=== PATIENT | female | born 1980 | race African-American/Black ===

== ENCOUNTER 2020-06-24 05:03 | Inpatient (IN) ==
[2020-06-24] MEDS ORDERED: CITRIC ACID/SODIUM CITRATE 30 ML UDCUP PO ONE (05:16)
[2020-06-24] MEDS ORDERED: ceFAZolin 2,000 MG in PREMIX 1 EACH IV ONE (05:16)
[2020-06-24] MEDS: LACTATED RINGERS 1,000 ML IV SCH (05:45)
[2020-06-24 05:50] LABS: Basophils # 0.1 10*3/uL (0.0-0.2); Basophils % 0.7 % (0.0-0.8); Eosinophils # 0.1 10*3/uL (0.0-0.87); Eosinophils % 1.7 % (0.00-10.9); Hematocrit 35.6 VOL% (35.7-47.0); Hemoglobin 11.8 GM/DL (12.0-16.0); Immature Granulocytes % 0.7 %; Immature Granulocytes Absolute 0.05 #; Lymphocytes # 2.5 10*3/uL (1.4-4.0); Lymphocytes % 33.2 % (21.3-54.2); Mean Corpuscular HGB Conc 33.1 GM/DL (32-36); Mean Corpuscular Volume 79.3 FL (87-102); Mean Platelet Volume 11.1 FL (9.6-12.0); Monocytes % 8.5 % (1.7-12.7); Neutrophils % 55.2 % (38.7-73.9); Platelet Count 214 T/CUMM (130-400); Red Blood Count 4.49 MC/CUMM (3.8-5.5); Red Cell Distribution Width 14.5 % (9.3-17.3); White Blood Count 7.6 T/CUMM (4-12)
[2020-06-24 06:11] LABS: Albumin 2.4 G/DL (3.4-5.0); Bilirubin,Total 0.6 MG/DL (0.2-1.0); Calcium 8.9 MG/DL (8.5-10.1); Osmolality,Calculated 275.4 MOS/KG (273-304); Total Protein 6.5 G/DL (6.4-8.3)
[2020-06-24] MEDS ORDERED: PHENYLEPHRINE 10 MG/1 ML VIAL IV ONE ×2 (06:36→08:04)
[2020-06-24] MEDS ORDERED: FAMOTIDINE 20 MG/2 ML VIAL IV ONE (07:15)
[2020-06-24] MEDS ORDERED: TRANEXAMIC ACID 1,000 MG/10 ML VIAL ONE (07:34)
[2020-06-24] MEDS ORDERED: miSOPROStoL 200 MCG TABLET ONE (07:34)
[2020-06-24] MEDS ORDERED: METHYLERGONOVINE 0.2 MG/1 ML AMP ONE (07:35)
[2020-06-24] MEDS ORDERED: OXYTOCIN/LR 20 UNIT/1,000 ML BAG IV ONE ×2 (07:35→09:08)
[2020-06-24] MEDS ORDERED: CARBOPROST TROMETHAMINE 250 MCG/ML AMP IM ONE (07:35)
[2020-06-24] MEDS ORDERED: BUPIVACAINE MPF 0.5% /EPI 30 ML VIAL ONE ×3 (08:00→08:04)
[2020-06-24] MEDS ORDERED: DEXAMETHASONE 4 MG/1 ML VIAL ONE (08:00)
[2020-06-24] MEDS ORDERED: MORPHINE 10 MG/10 ML VIAL ONE (08:00)
[2020-06-24] MEDS ORDERED: BUPIVACAINE SPINAL 0.75% 2 ML AMP SPINAL ONE (08:00)
[2020-06-24] MEDS ORDERED: BUPIVACAINE 0.25% 50 ML VIAL ONE (08:06)
[2020-06-24] MEDS ORDERED: RHO(D) IMMUNE GLOBULIN 300 MCG SYRINGE IM ONE (09:08)
[2020-06-24] MEDS ORDERED: SIMETHICONE CHEW 80 MG TABLET PO PRN (09:08)
[2020-06-24] MEDS ORDERED: MAGNESIUM HYDROXIDE SUSP 30 ML UDCUP PO PRN (09:08)
[2020-06-24] MEDS ORDERED: ONDANSETRON 4 MG/2 ML VIAL IV PRN (09:08)
[2020-06-24 09:14] LABS: Cord Venous Blood HCO3 23.8 MMOL/L; Cord Venous Blood PCO2 43.9 MMHG; Cord Venous Blood PO2 26.3
[2020-06-24 09:16] LABS: Bacteria,Urine Occasional /HPF (Few); Bilirubin,Urine Negative (Negative); Blood, Urine Negative (Negative); Glucose,Urine (UA) Negative (Negative); Ketones,Urine 5 mg/dL (Negative); Mucus,Urine Moderate /LPF (Occasional); Nitrite,Urine Negative (Negative); Protein,Urine 100 MG/DL; RBC,Urine 1 /HPF (0-4); Squamous Epithelial Cell,Urine Occasional /HPF (0-10); Urine Appearance CLEAR (Clear); Urine Color Yellow (Yellow); Urine Specific Gravity 1.027 (1.001-1.035); Urine Urobilinogen < 2.0 EU/DL (0.2-1.0); WBC,Urine 1 /HPF (0-6)
[2020-06-24] MEDS ORDERED: LACTATED RINGERS 1,000 ML IV SCH (09:30)
[2020-06-24 11:43] LABS: PT Patient Result 10.3 SECS (9.8-11.9); Partial Thromboplastin Time 32.1 SECS (23.9-33.8)
[2020-06-24 11:51] LABS: Albumin 2.3 G/DL (3.4-5.0); Bilirubin,Direct 0.13 MG/DL (0.0-0.20); Bilirubin,Total 0.4 MG/DL (0.2-1.0); Calcium 8.8 MG/DL (8.5-10.1); Osmolality,Calculated 277.3 MOS/KG (273-304); Total Protein 6.2 G/DL (6.4-8.3); Uric Acid 5.3 MG/DL (2.6-6.0)
[2020-06-24] MEDS: LABETALOL 100 MG TABLET PO SCH ×2 (12:06→21:02)
[2020-06-24] MEDS ORDERED: MEPERIDINE 50 MG/1 ML VIAL IM ONE (14:32)
[2020-06-24] MEDS ORDERED: PROMETHAZINE 25 MG/1 ML VIAL IM PRN (14:33)
[2020-06-24 16:28] VITALS: BP 155/106
[2020-06-24 16:58] LABS: Basophils # 0.1 10*3/uL (0.0-0.2); Basophils % 0.6 % (0.0-0.8); Eosinophils % 0.4 % (0.00-10.9); Immature Granulocytes % 0.7 %; Immature Granulocytes Absolute 0.07 #; Lymphocytes # 2.2 10*3/uL (1.4-4.0); Lymphocytes % 20.6 % (21.3-54.2); Mean Corpuscular HGB Conc 32.4 GM/DL (32-36); Mean Corpuscular Volume 80.6 FL (87-102); Mean Platelet Volume 11.1 FL (9.6-12.0); Monocytes % 7.7 % (1.7-12.7); Platelet Count 191 T/CUMM (130-400); Red Blood Count 4.22 MC/CUMM (3.8-5.5); Red Cell Distribution Width 14.9 % (9.3-17.3); White Blood Count 10.7 T/CUMM (4-12)
[2020-06-24] MEDS ORDERED: MAGNESIUM SULF RIDER 4 GM in PREMIX 1 EACH IV ONE (17:07)
[2020-06-24] MEDS ORDERED: MAGNESIUM SULF DRIP 40 GM/1,000 ML ML IV SCH (17:30)
[2020-06-24] MEDS: ceFAZolin 1,000 MG in SYRINGE 1 EACH IV SCH (17:51)
[2020-06-24] MEDS: IBUPROFEN 800 MG TABLET PO PRN (19:35)
[2020-06-24] MEDS: DOCUSATE SODIUM 100 MG CAPSULE PO SCH (21:02)
[2020-06-25] MEDS: ceFAZolin 1,000 MG in SYRINGE 1 EACH IV SCH (00:23)
[2020-06-25 06:07] LABS: Basophils # 0.1 10*3/uL (0.0-0.2); Basophils % 0.4 % (0.0-0.8); Eosinophils # 0.3 10*3/uL (0.0-0.87); Eosinophils % 2.4 % (0.00-10.9); Immature Granulocytes % 0.5 %; Immature Granulocytes Absolute 0.06 #; Lymphocytes # 1.9 10*3/uL (1.4-4.0); Lymphocytes % 17.1 % (21.3-54.2); Mean Corpuscular HGB Conc 33.3 GM/DL (32-36); Mean Corpuscular Volume 78.4 FL (87-102); Mean Platelet Volume 10.9 FL (9.6-12.0); Monocytes % 7.8 % (1.7-12.7); Neutrophils % 71.8 % (38.7-73.9); Platelet Count 200 T/CUMM (130-400); Red Blood Count 4.21 MC/CUMM (3.8-5.5); Red Cell Distribution Width 14.4 % (9.3-17.3); White Blood Count 11.3 T/CUMM (4-12)
[2020-06-25] MEDS: ACETAMINOPHEN 325 MG TABLET PO PRN ×2 (06:12→14:12)
[2020-06-25] MEDS: LACTATED RINGERS 1,000 ML IV SCH (06:47)
[2020-06-25] MEDS: LABETALOL 100 MG TABLET PO SCH (08:55)
[2020-06-25] MEDS: DOCUSATE SODIUM 100 MG CAPSULE PO SCH ×2 (08:56→21:04)
[2020-06-25] MEDS ORDERED: MULTIVITAMIN (PRENATAL) TABLET PO SCH (09:00)
[2020-06-25] MEDS ORDERED: LABETALOL 100 MG TABLET PO ONE ×2 (15:56→16:00)
[2020-06-25] MEDS: IBUPROFEN 800 MG TABLET PO PRN (20:02)
[2020-06-25] MEDS ORDERED: LABETALOL 200 MG TABLET PO SCH (21:00)
[2020-06-25] MEDS: LABETALOL 200 MG TABLET PO SCH (21:04)
[2020-06-26] MEDS ORDERED: MULTIVITAMIN (PRENATAL) TABLET PO SCH (09:00)
[2020-06-26] MEDS: LABETALOL 200 MG TABLET PO SCH (10:09)
[2020-06-26] MEDS: DOCUSATE SODIUM 100 MG CAPSULE PO SCH (12:17)
== END 2020-06-26 13:48 | disposition home or self-care (01) | DRG 540 ==
LOC: N.LD 05:03 → N.OB 13:28 → N.LD 16:49
PROVIDERS: ADMIT Obstetrics & Gynecology; ATTEND Obstetrics & Gynecology
PROC: LDCSECT (ICD-10-PCS; 2020-06-24 08:00)